=== PATIENT | female | born 1995 | race Asian ===

== ENCOUNTER 2016-07-09 00:35 | Emergency (ER) | payer OTHER ==
[~2016-07-09] VITALS: Ht 162.6 cm; Wt 44.3 kg
[2016-07-09 00:43] VITALS: TEMP 36.8; Ht 162.6 cm; Wt 44.3 kg
[2016-07-09] MEDS ORDERED: PHENAZOPYRIDINE HCL 200 MG TAB PO STA (01:09)
[2016-07-09] MEDS ORDERED: PHEN-876 PO (01:09)
[2016-07-09] MEDS ORDERED: NITR-5 PO (01:09)
[2016-07-09] MEDS ORDERED: NITROFURANTOIN MONOHYDRATE 100 MG CAP PO ONE (01:15)
--- NOTE | 2016-07-09 01:15 | EMERGENCY ROOM VISIT NOTE ---
ED Visit Note First contact with patient: 00:47 CHIEF COMPLAINT: Frequent and painful urination HISTORY OF PRESENT ILLNESS: This 21-year-old presents to the emergency department with boyfriend complaining of increased frequency of urination, burning pain with urination, and a feeling of incomplete voiding day. The patient passes very small volumes of urine with each episode of voiding. The patient does not have abdominal pain. They deny back pain, fever, or vaginal discharge. The patient has not frequent urinary tract infections in the past. Patient feels they are not at risk for STIs. REVIEW OF SYSTEMS: A 6 system review of systems was completed with positives and pertinent negatives listed in the HPI. ALLERGIES: Penicillin MEDICATIONS: None PMH: None SOCIAL HISTORY: No drug use PHYSICAL EXAM: Vital Signs: Reviewed Nurse's notes, vital signs stable. GENERAL : Pleasant female, in no acute distress, they do not appear toxic, well- developed, well-nourished. Heart: Regular rate and rhythm, lungs: Clear to auscultation ABDOMEN: Positive bowel sounds x 4. The abdomen is soft, mildly tender in the suprapubic area, but no masses or organs are felt. There is no CVA tenderness. The skin is clear. NEURO: Alert and oriented to person place and time. EMERGENCY DEPARTMENT COURSE: I examined the patient. The urine dip showed concerns for infection. The urine was sent for culture and sensitivity. The patient was given Macrobid and Pyridium. The patient was discharged home in good condition. Patient had no CVA tenderness. She is afebrile and nontoxic. She is well-appearing. She is advised to return to the ER immediately for fevers, vomiting, back pain, worsening signs or symptoms or as needed. DIAGNOSIS: UTI DISCHARGE INSTRUCTIONS & TREATMENT: As below Current/Historical Medications Scheduled Nitrofurantoin Monohyd Macrocr (Macrobid), 100 MG PO BID Phenazopyridine HCl (Pyridium), 200 MG PO TID Allergies Coded Allergies: Penicillins (Verified Adverse Reaction, Intermediate, dizzy, 07/09/16) Vital Signs Date Time Temp Pulse Resp B/P Pulse Ox O2 Delivery O2 Flow Rate FiO2 07/09/16 00:43 36.8 73 18 108/71 99 Room Air Laboratory Results Test 07/09/16 00:58 Urine Test NEG (NEG) Medications Administered Medications (Trade) Dose Ordered Sig/Regina Route Start Time Stop Time Status Last Admin Dose Admin Nitrofurantoin Macrocrystals (Macrobid Cap) 100 mg ONE ONCE PO 07/09/16 01:15 07/09/16 01:16 07/09/16 01:12 100 MG Phenazopyridine HCl (Pyridium Tab) 200 mg NOW STAT PO 07/09/16 01:09 07/09/16 01:10 DC 07/09/16 01:12 200 MG Departure Information Impression Primary Impression: Urinary tract infection Dispostion Home / Self-Care Condition GOOD Prescriptions Phenazopyridine HCl (Pyridium) 200 Mg Tab 200 MG PO TID for 2 Days, #6 TAB Prov: Joann Wright .MICH 07/09/16 Nitrofurantoin Monohyd Macrocr (Macrobid) 100 Mg Cap 100 MG PO BID for 7 Days, #14 CAP Prov: Joann Wright .MICH 07/09/16 Referrals [facility] (PCP) Forms HOME CARE DOCUMENTATION FORM, IMPORTANT VISIT INFORMATION Patient Instructions UTI, My [facility] Additional Instructions Macrobid(macrodantin) 100mg: Take one pill twice daily for 7 days for your urine infection. All antibiotics can cause diarrhea. If this occurs and you feel worse or it does not resolve in 1-2 days follow up with your doctor or return to the Emergency Department as this could be signs of serious underlying problems. Any medication can cause an allergic reaction, stop the pills immediately and return to the ER for rash, hives, breathing difficulties, or swelling. Pyridium 200mg: Take one pill three times daily as needed for urinary discomfort. This medication will turn your urine orange. This is normal and nothing to be concerned about. Ibuprofen(Motrin, Advil) may be used for fever or pain. Use 600mg every six hours as needed. Take with food. Avoid using more than 2400mg in a 24 hour period. Do not use 2400mg per day for more than three consecutive days without physician direction. Prolonged inappropriate use can lead to stomach upset or ulcers. (AND/OR) Acetaminophen(Tylenol) may be used for fever or pain. Use 500mg every six hours as needed. Avoid using more than 2000mg in a 24 hour period. Rest and drink plenty of fluids as tolerated. Slow sips of water or sports drinks are recommended instead of large amounts all at once. Continue current medications. Once your stomach is settled start with a clear liquid diet (jello, soup broth, etc.) and then advance as tolerated. You should avoid full, heavy meals for about 24 hrs from the time your symptoms resolved. Return to the ER immediately for worsening or persistent abdominal/back pain, vomiting, fevers, worsening of your condition, or as needed. Follow up with your primary physician within 2-3 days for a recheck of the current condition.
[2016-07-09 01:18] VITALS: BP 100/52; PULSE 85; O2SAT 98
== END 2016-07-09 01:19 | disposition home or self-care (01) ==
LOC: C.EDB 00:37
DX: N39.0 Urinary tract infection, site not specified (principal)

== ENCOUNTER 2017-05-09 09:37 | Emergency (ER) | payer OTHER ==
[~2017-05-09] VITALS: Ht 152.4 cm; Wt 44.3 kg
[2017-05-09 09:39] VITALS: TEMP 36.7
--- NOTE | 2017-05-09 09:58 | EMERGENCY ROOM VISIT NOTE ---
History Report prepared by Leigha: Amber Smart Under the Supervision of: Dr. Farooq Sexton M.D. First contact with patient: 09:42 Chief Complaint: VAGINAL BLEEDING Stated Complaint: VAGINAL BLEEDING History of Present Illness The patient is a 22 year old female with no past medical history who presents to the ED with a cc of constant vaginal bleeding beginning this morning. Pt states that the bleeding started this morning after having sex. She reports that this has happened before but there is more bleeding today. LNMP 1 week ago. Negative nausea, vomiting, lightheadedness, and dizziness. Pt notes that she is not on blood thinners. Source of History: patient Onset: this morning Position: other (vaginal) Quality: other (bleeding) Timing: constant Associated Symptoms: No nausea, No vomiting Note: Pt denies lightheadedness and dizziness. Review of Systems See HPI for pertinent positives and negatives. A total of ten systems were reviewed and were otherwise negative. Past Medical & Surgical Medical Problems: (1) UTI (urinary tract infection) Family History No pertinent family history stated. Social History Smoking Status: Never Smoker Marital Status: single Housing Status: lives with roommate Occupation Status: [employer] Current/Historical Medications No Active Prescriptions or Reported Meds Allergies Coded Allergies: Penicillins (Verified Adverse Reaction, Intermediate, dizzy, 05/09/17) Physical Exam Vital Signs Date Time Temp Pulse Resp B/P (MAP) Pulse Ox O2 Delivery O2 Flow Rate FiO2 05/09/17 11:10 67 17 106/57 97 Room Air 05/09/17 09:39 36.7 73 17 104/66 99 Room Air Physical Exam GENERAL: Awake, alert, well-appearing, NAD HENT: Normocephalic, atraumatic. EYES: Normal conjunctiva. Sclera non-icteric. NECK: Supple. No nuchal rigidity. FROM. RESPIRATORY: CTAB, no rhonchi, wheezing, crackles CARDIAC: RRR, no MRG ABDOMEN: Soft, NTND, BS+ MSK: No chest wall TTP, no LE edema NEURO: GCS 15, CN 2-12 intact, moves all 4s on command SKIN: No rash or jaundice noted. PELVIC: Scant dark blood in the vaginal vault, no purulent discharge, no obvious hemorrhage, mild CNT, no adnexal TTP. Medical Decision & Procedures Laboratory Results Test 05/09/17 10:15 Urine Color YELLOW Urine Appearance CLEAR (CLEAR) Urine pH 8.0 (4.5-7.5) Urine Specific [place] 1.011 (1.000-1.030) Urine Protein NEG (NEG) Urine Glucose (UA) NEG (NEG) Urine Ketones NEG (NEG) Urine Occult Blood 2+ (NEG) Urine Nitrite NEG (NEG) Urine Bilirubin NEG (NEG) Urine Urobilinogen NEG (NEG) Urine Leukocyte Esterase TRACE (NEG) Urine WBC (Auto) 1-5 /hpf (0-5) Urine RBC (Auto) 5-10 /hpf (0-4) Urine Hyaline Casts (Auto) 0 /lpf (0-5) Urine Epithelial Cells (Auto) >30 /lpf (0-5) Urine Bacteria (Auto) NEG (NEG) Urine Test NEG (NEG) Laboratory results reviewed by me ED Course 0942: The patient was evaluated in room B6. A complete history and physical exam was performed. 1023: I reevaluated the patient and did a pelvic exam. 1055: I reevaluated the patient. Discussed results and discharge instructions: She verbalized understanding and agreement. The patient is ready for discharge. Medical Decision The patient is a 22 year old female with no past medical history who presents to the ED with a cc of constant vaginal bleeding beginning this morning. Differential diagnosis: Etiologies such as gastroenteritis, food borne illness, infections, appendicitis , diverticulitis, inflammatory bowel disease, obstruction, GI bleed, biliary pathology, as well as others were entertained. Patient was seen and evaluated at the bedside. Patient did have some postcoital vaginal bleeding. Patient states that this is happened before. Patient denies any other recent instrumentation or trauma. Patient states that she has not been prior. Patient says her LMP was approximately one to 2 weeks ago. Patient is otherwise very well-appearing. Patient declined lab work. Patient's pelvic exam did show some scant dark blood within the vaginal vault. No active bleeding noted. On bimanual exam patient did have some mild CMT. However, given the recent coitus, this is likely a reason for her discomfort. The patient does not have a friable cervix nor does she have any foul-smelling or purulent discharge. Patient denies any foul-smelling or purulent discharge and does not have any history of fevers or chills. Given this I do not believe that she has STI, PID, or other bacterial infection. Patient was deemed suitable for outpatient follow-up and treatment. 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 Patient was told to not resume sex until she feels better. Patient was deemed suitable for outpatient follow-up and treatment. Patient was given strict follow-up, discharge, and return precautions. All questions were answered. Patient was deemed suitable for outpatient follow-up at this time. Patient agreed with the plan of care and was safely discharged home. Medication Reconcilliation Current Medication List: was personally reviewed by me Blood Pressure Screening Patient's blood pressure: Normal blood pressure Blood pressure disposition: Did not require urgent referral Impression Primary Impression: Abnormal vaginal bleeding Scribe Attestation The scribe's documentation has been prepared under my direction and personally reviewed by me in its entirety. I confirm that the note above accurately reflects all work, treatment, procedures, and medical decision making performed by me. Departure Information Dispostion Home / Self-Care Prescriptions No Active Prescriptions or Reported Meds Referrals [facility] (PCP) Patient Instructions ED Bleed Irregular Vaginal, My [facility] Additional Instructions Please return to the emergency department if you have worsening or recurrent symptoms not amenable to at-home treatment. Please call for a follow-up appointment with her primary care physician. Please take your medications as prescribed. If you have other concerns and/or complaints please feel free to also call your primary care physician's office or return the ED for further evaluation, management, and treatment. Please follow-up with [facility] for your women's health needs. You may take 600 mg Ibuprofen every 6 hours as needed for pain with food for no more than 2 consecutive days. You may take tylenol 1000 mg every 6 hours as needed for pain. You may take motrin and tylenol separately or at the same time. Take your medications as prescribed. You have been examined and treated today on an emergency basis only. This is not a substitute for, or an effort to provide, complete comprehensive medical care. It is impossible to recognize and treat all injuries or illnesses in a single emergency department visit. It is therefore important that you follow up closely with [facility], your PCP, and/or your specialist(s). Call as soon as possible for an appointment. Thank you for your time and consideration. I look forward to speaking with you again soon. Please don't hesitate to call us if you have any questions.
[2017-05-09 10:34] VITALS: Ht 152.4 cm; Wt 44.3 kg
[2017-05-09 11:10] VITALS: BP 106/57; PULSE 67; O2SAT 97
== END 2017-05-09 11:39 | disposition home or self-care (01) ==
LOC: C.EDB 09:39
DX: N93.9 Abnormal uterine and vaginal bleeding, unspecified (principal); Z87.440 Personal history of urinary (tract) infections